=== PATIENT | female | born 2000 | race Caucasian/White ===

== ENCOUNTER 2021-09-15 21:15 | Emergency (ER) | payer BC ==
[~2021-09-15] VITALS: Ht 167.6 cm; Wt 112.0 kg
[2021-09-15 21:20] VITALS: TEMP 97.6
[2021-09-15 21:37] LABS: STREP SCREEN NEGATIVE
[2021-09-15] MEDS ORDERED: CLEOCIN HCL300 MG PO (21:48)
[2021-09-15 22:01] VITALS: BP 144/78; PULSE 76
== END 2021-09-15 22:01 | disposition home or self-care (01) ==
LOC: COL.ER 21:15
PROVIDERS: Emergency Medicine
DX: J03.90 Acute tonsillitis, unspecified (principal); Z88.0 Allergy status to penicillin; Z88.1 Allergy status to other antibiotic agents; Z91.040 Latex allergy status
CPT/HCPCS: J8540